=== PATIENT | female | born 2000 | race Caucasian/White ===

== ENCOUNTER → 2020-08-14 14:42 | Outpatient (CLI) | payer SELFPAY ==
[2020-08-14 18:47] LABS: T4 Free Direct 1.14 ng/dL (0.76-1.46); Thyroid Stim Hormone (TSH) 0.83 uIU/mL (0.358-3.74)
== END ==
DX: E03.9 Hypothyroidism, unspecified (principal)
CPT/HCPCS: 36415; 84439; 84443